=== PATIENT | female | born 1965 | race Caucasian/White ===

== ENCOUNTER 2025-05-03 15:31 | Inpatient (IN) | payer BC, SELFPAY ==
[2025-05-03 10:22] VITALS: BP 132/80
--- NOTE | 2025-05-03 11:37 | ED.GENMED ---
History of Present Illness
<Deepak Pineda DO - Last Filed: 05/03/25 11:40>
General
Chief Complaint: Abdominal Symptoms
Time Seen by Provider: 05/03/25 11:02
<Kathy Crawford DO, Resident - Last Filed: 05/03/25 15:28>
General
Source: patient
Exam Limitations: none
Nursing documentation reviewed up to this point in time: agreed with
History of Present Illness
History of Present Illness:
Patient is a 59-year-old female past medical history of obesity on GLP-1 agonist, presenting with new epigastric pain radiating to her right shoulder and back. Patient has been on 7 pound recently switched 2 months ago to Ozempic, and had a recent
dose increase on Tuesday. Patient woke up this morning had epigastric pain more on the right side that radiated to her right shoulder. Patient ate oatmeal this morning and still had pain and nausea. Patient had 1 episode of vomiting. Patient
also notes new heartburn. Patient endorses having a headache, although she normally has a headache after her Ozempic injections. Patient states that at her worst the pain was a 9, but now it is a 5. Patient is complaining of worsening chest
shoulder discomfort pain. Patient also notes increase in urination that is new over the last year. Patient recently traveled to [place] to visit her daughter and returned on Tuesday.
Review of Systems
<Kathy Crawford DO, Resident - Last Filed: 05/03/25 15:28>
Review of Systems
Allergies reviewed?: Yes
All Other Systems: ROS reviewed and negative except as documented in HPI and ROS
Constitutional: Reports no symptoms
EENT: Reports no symptoms
Respiratory: Reports no symptoms
Cardiac: Reports no symptoms
ABD/GI: Reports abdominal pain, nausea and constipated
: Reports frequency (Increased frequency over the last 6 months)
Musculoskeletal: Reports no symptoms
Skin: Reports no symptoms
Neurological: Reports headache (Notes headache after LP 1 agonist injections)
Endocrine: Reports no symptoms
Hematologic/Lymphatic: Reports no symptoms
Psychiatric: Reports no symptoms
Phy Exam
<Kathy Crawford DO, Resident - Last Filed: 05/03/25 15:28>
General Physical Exam
General Presentation: well appearing and mild distress
General age: appears stated age
General Skin: warm and dry
General Habitus: normal
General Mental: alert
Cardiovascular Exam
Cardiovascular Exam: regular rate/rhythm
Heart Sounds: normal
Pulmonary Exam
Pulmonary Exam: lungs clear and no respiratory distress
Gastrointestinal Exam
Gastrointestinal Exam: normal bowel sounds and tender (Mildly tender in upper right quadrant)
Neurological Exam
Neurological Exam: alert and oriented x3
Skin Exam
Skin Exam: normal color and warm/dry
Psychiatric Exam
Psychiatric Exam: normal mood/affect
Course
<Deepak Pineda DO - Last Filed: 05/03/25 11:40>
Orders/Labs/Results
Orders:
Orders
05/03/25 11:33
Mag Hydrox/Al Hydrox/Simeth [Maalox] 30 ml Phenobarb/Hyoscy/Atropine/Scop [] 10 ml Viscous Lidocaine 2% [Xylocaine Viscous Cup] 10 ml PO NOW
05/03/25 11:34
Electrocardiogram (*1) Stat
Reason for Study: Chest Pain
EKG- Treatment ONCE
05/03/25 11:35
Electrocardiogram (*1) Urgent
Reason for Study: Chest Pain
05/03/25 11:46
Complete Blood Count/With Diff Urgent
Comprehensive Metabolic Panel Stat
Comment: ADD ON
Direct Bilirubin Stat
Comment: ADD ON
Lipase Stat
Troponin I Urgent
05/03/25 11:52
Mag Hydrox/Al Hydrox/Simeth [Maalox] 30 ml .ROUTE .STK-MED ONE
Phenobarb/Hyoscy/Atropine/Scop [] 10 ml .ROUTE .STK-MED ONE
Viscous Lidocaine 2% [Xylocaine Viscous Cup] 15 ml .ROUTE .STK-MED ONE
05/03/25 12:29
Urinalysis Reflex To Culture Urgent
Date Specimen was Collected: 05/03/25
Time Specimen was Collected: 12:28
05/03/25 13:37
Add On- LAB Urgent
Tests Added?: LFTs
05/03/25 14:21
CT Abd/pel W Iv And Oral Contr Urgent
Comment:
Reason For Exam: Abdominal Pain, Elevated Lipase
Iohexol [Omnipaque] See Protocol PO NOW STA
05/03/25 14:22
Admit/Transfer Patient As Directed
Co-Sign Provider:
Level of Care: Inpatient admission
Assign to:: Medical/Surgical
Physician / Group: [facility]
Diagnosis: Pancreatitis
Reason for Hospitalization: CT scan, IVFs, Pancreatitis Management
Expected length of stay greater than two midnights?: Yes
ELOS- Estimated Length of Stay in days: 3
I certify the patient meets the requirements for IP care: Yes
PRN Pain Medication Management As Directed
May give lesser potent ordered pain med per pt: Yes
preference::
Protocol:: Medication orders for pain may be administered in a
manner that supports deferring to patient preference
when the pt is:
- Requesting an ordered lesser potent pain medication.
Least to most potent pain medications are defined
as: acetaminophen < NSAID < tramadol < opioids
(morphine, oxycodone, hydromorphone).
- Requesting a lesser dose of the same medication IF
ORDERED.
- Requesting a less intrusive route of administration
if both routes are prescribed by the provider (PO <
IV).
05/03/25 14:23
Code Status As Directed
Resuscitation Status: Full Code
05/03/25 15:00
Lactated Ringers [Lr] 1,000 ml IV 150 mls/hr
Abnormal Lab Results
05/03/25
11:46
MCH 26.9 L pg
(27.0-31.0)
MCHC 32.1 L g/dL
(33.0-37.0)
Lipase 3660 H* U/L
(23-300)
05/03/25 11:46
05/03/25 12:29
Vital Signs
Initial and Last Documented VS:
Initial Vital Signs
Temp Pulse Resp BP Pulse Ox
98.2 F 88 16 132/80 98
05/03/25 10:22 05/03/25 10:22 05/03/25 10:22 05/03/25 10:22 05/03/25 10:22
Last Documented Vital Signs
Temp Pulse Resp BP Pulse Ox
98.2 F 84 18 138/73 100
05/03/25 10:22 05/03/25 14:30 05/03/25 14:30 05/03/25 14:30 05/03/25 14:30
<Kathy Crawford DO, Resident - Last Filed: 05/03/25 15:28>
Orders/Labs/Results
Orders:
Orders
05/03/25 11:33
Mag Hydrox/Al Hydrox/Simeth [Maalox] 30 ml Phenobarb/Hyoscy/Atropine/Scop [] 10 ml Viscous Lidocaine 2% [Xylocaine Viscous Cup] 10 ml PO NOW
05/03/25 11:34
Electrocardiogram (*1) Stat
Reason for Study: Chest Pain
EKG- Treatment ONCE
05/03/25 11:35
Electrocardiogram (*1) Urgent
Reason for Study: Chest Pain
05/03/25 11:46
Complete Blood Count/With Diff Urgent
Comprehensive Metabolic Panel Stat
Comment: ADD ON
Direct Bilirubin Stat
Comment: ADD ON
Lipase Stat
Troponin I Urgent
05/03/25 11:52
Mag Hydrox/Al Hydrox/Simeth [Maalox] 30 ml .ROUTE .STK-MED ONE
Phenobarb/Hyoscy/Atropine/Scop [] 10 ml .ROUTE .STK-MED ONE
Viscous Lidocaine 2% [Xylocaine Viscous Cup] 15 ml .ROUTE .STK-MED ONE
05/03/25 12:29
Urinalysis Reflex To Culture Urgent
Date Specimen was Collected: 05/03/25
Time Specimen was Collected: 12:28
05/03/25 13:37
Add On- LAB Urgent
Tests Added?: LFTs
05/03/25 14:21
CT Abd/pel W Iv And Oral Contr Urgent
Comment:
Reason For Exam: Abdominal Pain, Elevated Lipase
Iohexol [Omnipaque] See Protocol PO NOW STA
05/03/25 14:22
Admit/Transfer Patient As Directed
Co-Sign Provider:
Level of Care: Inpatient admission
Assign to:: Medical/Surgical
Physician / Group: [facility]
Diagnosis: Pancreatitis
Reason for Hospitalization: CT scan, IVFs, Pancreatitis Management
Expected length of stay greater than two midnights?: Yes
ELOS- Estimated Length of Stay in days: 3
I certify the patient meets the requirements for IP care: Yes
PRN Pain Medication Management As Directed
May give lesser potent ordered pain med per pt: Yes
preference::
Protocol:: Medication orders for pain may be administered in a
manner that supports deferring to patient preference
when the pt is:
- Requesting an ordered lesser potent pain medication.
Least to most potent pain medications are defined
as: acetaminophen < NSAID < tramadol < opioids
(morphine, oxycodone, hydromorphone).
- Requesting a lesser dose of the same medication IF
ORDERED.
- Requesting a less intrusive route of administration
if both routes are prescribed by the provider (PO <
IV).
05/03/25 14:23
Code Status As Directed
Resuscitation Status: Full Code
05/03/25 15:00
Lactated Ringers [Lr] 1,000 ml IV 150 mls/hr
Abnormal Lab Results
05/03/25
11:46
MCH 26.9 L pg
(27.0-31.0)
MCHC 32.1 L g/dL
(33.0-37.0)
Lipase 3660 H* U/L
(23-300)
05/03/25 11:46
05/03/25 12:29
Vital Signs
Initial and Last Documented VS:
Initial Vital Signs
Temp Pulse Resp BP Pulse Ox
98.2 F 88 16 132/80 98
05/03/25 10:22 05/03/25 10:22 05/03/25 10:22 05/03/25 10:22 05/03/25 10:22
Last Documented Vital Signs
Temp Pulse Resp BP Pulse Ox
98.2 F 84 18 138/73 100
05/03/25 10:22 05/03/25 14:30 05/03/25 14:30 05/03/25 14:30 05/03/25 14:30
<Kathy Crawford DO, Resident - Last Filed: 05/03/25 15:28>
MDM/Problems Addressed
Differential Diagnosis Includes:
Acute pancreatitis
MDM/Problems Addressed:
CBC BMP and lipase to assess for pancreatitis. Patient complaining of worsening chest back pain, ordered EKG to assess cardiac causes. EKG showed normal sinus rhythm. Troponin negative. Lipase resulted 3660. Patient amenable to to hospital
admission for pain management, hydration and eventual advancing of diet.
<Deepak Pineda, - Last Filed: 05/03/25 11:40>
*Pulse Oximetry
SaO2: 98
Oxygen Mode of Delivery: Room air
<Kathy Crawford DO, Resident - Last Filed: 05/03/25 15:28>
*Pulse Oximetry
Patient hypoxic: no
*EKG
Interpreted by ED Provider?: Yes
Interpretation: normal
*Critical Care Note
Total Time (30-74mins, 75-104mins- exclusive of procedures): Not Applicable
ED Attending Note
<Deepak Pineda, DO - Last Filed: 05/03/25 11:40>
ED Attending Note
Patient seen and examined by attending physician: Yes
I performed a history and physical exam of patient and discussed management with resident, I reviewed resident's note and agree with documented findings and plan of care.: Yes
ED Attending Note:
I have seen and evaluated the patient with a [id number] encounter. I have spoken to the resident and involved in the medical history, the physical exam, medical decision making.
Evaluation and management service: agree unless noted differently below.
Results interpretation: agree unless noted differently below.
Focused HPI: 59-year-old female presenting with resolving abdominal discomfort. This started after her morning coffee. She states the discomfort was radiating to her right shoulder of note, she was recently switched from Zepbound to Ozempic few
months ago. On my assessment, all symptoms appear to be resolving. Symptom are not exertional
Physical exam: Sitting in bed comfortably. Abdomen soft nontender
Medical Decision Making: Given age and complaint, will obtain screening EKG. We discussed the more likely diagnosis of gastritis versus pancreatitis secondary to medication side effect. Patient has had a prior cholecystectomy. Will give GI
cocktail. If workup negative, will refer to GI
-
Portions of this chart may have been created with voice recognition software.� Occasional wrong word or��sound alike� substitutions may have occurred due to the inherent limitations of voice recognition software.
Discharge Plan
Departure
Patient Disposition: Admit
Date of Disposition: 05/03/25
Time of Disposition: 13:32
Presentation/result/management discussed w/ accepting MD/DO: Hospitalist
Discharge Problem:
Pancreatitis, acute
Instructions: Abdominal Pain
Prescriptions:
No Action
escitalopram oxalate [Lexapro] 10 mg Tablet
20 mg PO DAILY
doxepin 75 mg Capsule
75 mg PO HS
diphenhydramine HCl [Benadryl] 25 mg Capsule
25 mg PO HSPRN PRN (Reason: sleep)
ibuprofen [Advil] 200 mg Tablet
400 mg PO Q8HPRN PRN (Reason: mild pain)
Zepbound 15 mg/0.5 mL Pen Injector
15 mg SC WE
Referrals:
Dank Marie MD [Family Provider, Family Practice]
Interventions
Interventions:
*Risk Screen - Suicide Last Done: 05/03/25 10:22
*Neglect/Abuse Screening Last Done: 05/03/25 10:22
EI-Yveaqa-Vjpzmkjoak Assessment Last Done: 05/03/25 12:35
Discharge Date and Time
Print Language: SINHALA
[2025-05-03 11:48] VITALS: BP 93/66
[2025-05-03] MEDS: MAALOX 50 PO (11:54)
[2025-05-03 11:57] LABS: Hematocrit 38.3 % (37.0-47.0); Hemoglobin 12.3 g/dL (12.0-16.0); Mean Corp Hgb Conc. 32.1 g/dL (33.0-37.0); Mean Corpuscular Volume 83.6 fL (81.0-99.0); Nucleated Red Blood Cells % 0 %; Platelet Count 300 10^3/uL (130-400); Red Cell Dist. Width 13.3 % (11.5-14.5)
[2025-05-03 12:30] LABS: Troponin I < 0.012 ng/ml
[2025-05-03 12:39] LABS: Urine Character Clear (Clear)
[2025-05-03 12:50] LABS: Blood Urea Nitrogen 13 mg/dl (7-17); Calcium 8.8 mg/dl (8.4-10.2); Carbon Dioxide 29 mmol/L (22-30); Chloride 105 mmol/L (98-107); Glucose 79 mg/dl (70-99); Lipase 3660 U/L (23-300); Potassium 4.3 mmol/L (3.5-5.1); Sodium 139 mmol/L (135-145); eGFR > 60.00
--- NOTE | 2025-05-03 13:39 | HPS.HSE ---
Family Physician
-
Family Physician: Dank Marie
Chief Complaint
-
Abdominal Pain
History of Present Illness
Patient is a 59 y/o female past medical history of anxiety, and treated hepatitis C who presents with abdominal pain. Patient awoke this morning with right upper quadrant and epigastric abdominal pain. She reports pain radiated around to the back
and then up to her right shoulder. She took some Motrin with some improvement in the pain. She then ate some oatmeal for breakfast which cause the pain get significant worse prompting her to come to the emergency department for evaluation. She
reports some associated nausea and two episodes of vomiting after eating oatmeal. She notes her gallbladder was removed over 10 years ago.
Patient reports she has been taking Zepbound for past several months, and changed to Ozempic one month ago.
Medical History
Past Medical History
Past Medical History: Reports Other
Additional Past Medical History:
Generalized Anxiety Disorder / Insomnia
Treated Hepatitis C
Past Surgical History: Reports Other
Additional Past Surgical History:
Partial Hysterectomy
Cholecystectomy
Section
Social History
Tobacco: Non-smoker
Alcohol: None
Drug: Former User (Patient reports has been sober since the fall )
Family History
Family History: Not pertinent
Allergies / Home Medications
Allergies reflects when Allergies were last updated in [facility].
Home Medications with original date entered in [facility]
Allergy/Medication List:
Allergies
Allergy/AdvReac Type Severity Reaction Status Date / Time
codeine Allergy NAUSEA AND Verified 05/03/25 10:27
ITCHING
Home Medications
diphenhydramine HCl 25 mg capsule (Benadryl) 25 mg PO HSPRN PRN sleep 05/03/25
doxepin 75 mg capsule 75 mg PO HS 05/03/25
escitalopram oxalate 10 mg tablet (Lexapro) 20 mg PO DAILY 05/03/25
ibuprofen 200 mg tablet (Advil) 400 mg PO Q8HPRN PRN mild pain 05/03/25
tirzepatide (weight loss) 15 mg/0.5 mL subcutaneous pen injector (Zepbound) 15 mg SC WE 05/03/25
Review of Systems
-
A 12 point ROS was completed and negative except as noted: Yes
Constitutional: Denies Fever
Respiratory: Denies Cough or Trouble Breathing
Cardiac: Denies Chest Pain or Palpitations
Abdomen/GI: Reports See HPI
Physical Exam
Vital Signs
Vital Signs
Temp Pulse Resp BP Pulse Ox
98.2 F 71 30 93/66 98
05/03/25 10:22 05/03/25 12:00 05/03/25 11:48 05/03/25 11:48 05/03/25 11:37
Physical Exam
General: Comfortable and Conversant
HEENT: Anicteric and Moist mucous membranes
Respiratory: Clear and Non Labored Respirations
Cardiac: S1/S2 and Regular Rhythm
GI: Soft and Tender (Mild tenderness to palpation in epigastric and right upper quadrant, slightly more tender in right upper quadrant)
Rectal: Deferred by Provider
Musculoskeletal: No Clubbing, No Cyanosis and No Edema
Skin: Warm and Dry
Neuro: Awake, Alert, Oriented and Nonfocal/grossly intact
Psych: Calm
Laboratory Results
-
05/03/25 11:46
Laboratory Tests
05/03/25
11:46
Sodium 139
Potassium 4.3
Chloride 105
Carbon Dioxide 29
BUN 13
Creatinine 0.7
Glucose 79
Total Bilirubin Pending
Direct Bilirubin Pending
AST Pending
ALT Pending
Alkaline Phosphatase Pending
Total Protein Pending
Albumin Pending
Lipase 3660 H*
Data Reviewed
-
Lab Data: Labs Reviewed by me
Impression/Plan
-
Acute Pancreatitis, unclear cause possibly related to Ozempic vs Choledocholithiasis
-LFTs are pending
-Check Abd/Pelvis CT scan
-Continue NPO/IVFs
-Continue Tylenol for mild pain, Toradol for moderate pain and Dilaudid for severe pain
Anxiety / Insomnia
-Continue doxepin and escitalopram
DVT proph: Lovenox
Code Status: Full Code
[2025-05-03 14:30] VITALS: BP 138/73
[2025-05-03] MEDS: OMNIPAQUE 50 ML PO (14:38)
--- NOTE | 2025-05-03 14:40 | W.PN.UPDATE ---
Update Note
Progress Note Update
This is an addendum to H&P written by Brittany Laughlin on 05/03/2025. �Patient seen and examined independently with PA.
59-year-old female past medical history of obesity on Ozempic, anxiety, treated hepatitis C, IV drug use , cholecystectomy 10 years ago presenting with epigastric pain rating to right shoulder and back associate with vomiting, heartburn, increase in
urination. �Recently switched from Zepbound to Ozempic 2 months ago and had dose increased.
Vital signs show initial blood pressure normal however second blood pressure 93/66. �Labs unremarkable apart from lipase of 3600.
Patient with acute pancreatitis secondary to Ozempic vs choledocholithiasis. �Check LFTs. �N.p.o., IV fluids. �Dilaudid, Zofran, Dilaudid. Check CT abdomen pelvis with IV contrast.
[2025-05-03 14:53] LABS: ALT (SGPT) 13 U/L (0-35); AST (SGOT) 17 U/L (14-36); Albumin 4.2 g/dl (3.5-5.0); Alkaline Phosphatase 63 U/L (38-126); Total Protein 6.9 g/dl (6.3-8.2)
--- NOTE | 2025-05-03 14:53 | CM ---
CM reviewed chart and met with pt bedside in ED. Lives with her mother, 1 story home, no KADEEM.
Pt is but has been for 10 years.
Independent in ADLs, personal care and ambulation at baseline. No DME.
No hx VN/SNF.
Does not have prescription coverage, states insurance has high deductibles.
PCP: Dank Marie
Pharmacy: [facility]
Anticipate discharge home, watch for needs.
[2025-05-03] MEDS: LR 1000 IV ×2 (15:26→20:09)
[2025-05-03 15:28] VITALS: BP 110/65
[2025-05-03 17:41] VITALS: BP 135/74
[2025-05-03 19:45] VITALS: BMI 38.3
[2025-05-03] MEDS: LOVENOX 40 MG SC (20:08)
--- NOTE | 2025-05-03 20:18 | W.PN.UPDATE ---
Update Note
Progress Note Update
Abd / Pelvis CT scan:
Elongated jejuno-jejunal intussusception extending for a length of at least 12 cm. In an adult, intussusception is usually accompanied by a mass and/for lead point.
Reviewed with patient CT scan results.
Consulted General Surgery who recommends repeat CT tomorrow morning
Continue NPOfor possible OR following CT scan based on results
Place NG Tube if patient develops vomiting
[2025-05-03] MEDS: MELATONIN PO (21:02)
[2025-05-03] MEDS: BENADRYL 25 MG PO (21:02)
[2025-05-03] MEDS: SINEQUAN 75 MG PO (21:02)
[2025-05-03] MEDS: MELATONIN 5 MG PO (21:05)
[2025-05-03 23:06] VITALS: BP 130/68
[2025-05-03] MEDS: DILAUDID 0.25 MG IV (23:08)
[2025-05-03] MEDS: TYLENOL 650 MG PO (23:43)
--- NOTE | 2025-05-04 00:23 | PTCARENOTE ---
Patient in bed on unit at change of shift. No c/o pain or discomfort on assessment. Oriented to unit. Call cabrera within reach.
[2025-05-04] MEDS: DILAUDID 0.25 MG IV ×2 (02:24→20:37)
[2025-05-04] MEDS: LR 1000 IV ×3 (02:26→16:40)
[2025-05-04] MEDS: TYLENOL 650 MG PO ×2 (05:02→22:29)
[2025-05-04 07:00] VITALS: BP 115/62
--- NOTE | 2025-05-04 07:30 | W.PN.HOSP.TC ---
Today's Communication/Plan
-
See A/P
Assessment / Plan
Assessment / Plan
Assessment/plan
#Abdominal pain secondary to jejunal intussusception
-Presented with epigastric pain radiating to back
-Lipase level on presentation 3660
-Abdominal CT- Elongated jejuno-jejunal intussusception extending for a length of at least 12 cm. In an adult, intussusception is usually accompanied by a mass and/for lead point. No definitive pancreatic/peripancreatic -inflammatory changes.
-General surgery consulted given imaging findings
-Input appreciated, recommended CT repeat today
-N.p.o. for possible OR today
-Pain control with Tylenol, ketorolac. Avoid hydromorphone
-Continue IV fluids
#Anxiety
-Continue Lexapro
#Insomnia
-Continue doxepin
#Obesity secondary to excess calories
-Affects all aspects of care, counseled on weight loss
CODE STATUS full code
DVT prophylaxis Lovenox
Anticipated Discharge: > 48 hours
Subjective/Interval History
-
Patient seen and examined at bedside. Reports significant improvement in pain compared to yesterday.
Objective Data
-
Labs:
Laboratory Results
05/04/25
06:00
WBC Pending
Hgb Pending
Hct Pending
Plt Count Pending
Sodium Pending
Potassium Pending
Chloride Pending
Carbon Dioxide Pending
BUN Pending
Creatinine Pending
Glucose Pending
Calcium Pending
Total Bilirubin Pending
AST Pending
ALT Pending
Alkaline Phosphatase Pending
Vital Signs:
Vital Signs
Temp Pulse Resp BP Pulse Ox
98.0 F 81 18 130/68 96
05/03/25 23:06 05/03/25 23:06 05/03/25 23:06 05/03/25 23:06 05/03/25 23:06
I&O
05/03/25 05/04/25 05/05/25
06:59 06:59 06:59
Intake Total 2079
Balance 2079
Review of Systems
-
All other systems: Reviewed and negative (Except as documented)
Physical Exam
-
General: Well Developed and No Apparent Distress
Respiratory: Clear to Auscultation
Cardiac: Regular Rhythm and S1/S2
GI: Soft, Nondistended, Normal Bowel Sounds and Tender (Tenderness to palpation in the left quadrant)
Musculoskeletal: No Edema
Neuro: Awake, Alert, Oriented and AO x 3
--- NOTE | 2025-05-04 08:08 | W.PN.UPDATE ---
Update Note
Progress Note Update
I saw and evaluated the patient. I reviewed the resident�s note and agree with findings and plan as documented in the resident�s note.
Abdominal pain O/N, none now, no vomiting.
Gen: NAD, AAOx3.
Eyes: EOMI, PERRLA, no scleral icterus.
Neck: supple.
CV: RRR, +S1/S2, no m/r/g.
Resp: CTAB, no rales, wheezes, or rhonchi.
Abd: +BS, soft, NT, ND
Skin: No rashes.
Neuro: CN 2-12 intact, non-focal.
Psych: Normal mood and affect.
CT A/P: Elongated jejuno-jejunal intussusception extending for a length of at least 12 cm. In an adult, intussusception is usually accompanied by a mass and/for lead point. Suggest surgical consultation. Prior cholecystectomy. Slight prominence of
the extrahepatic biliary tract which may be the sequela of prior cholecystectomy. Suggest correlation with LFTs. No definitive pancreatic/peripancreatic inflammatory changes.
Acute jejunal jejunal intussusception:
-NPO/IVFs
-repeat CT A/P today
-surgery following
Anxiety/Insomnia:
-Continue doxepin and escitalopram
FULL/Lovenox
Request transfer to surgical service, Dr. Ta aware.
[2025-05-04] MEDS: OMNIPAQUE 50 ML PO (08:24)
[2025-05-04] MEDS: LEXAPRO 20 MG PO (08:24)
[2025-05-04 08:59] LABS: Hematocrit 35.3 % (37.0-47.0); Hemoglobin 11.2 g/dL (12.0-16.0); Mean Corp Hgb Conc. 31.7 g/dL (33.0-37.0); Mean Corpuscular Volume 83.1 fL (81.0-99.0); Platelet Count 257 10^3/uL (130-400); Red Cell Dist. Width 13.3 % (11.5-14.5)
[2025-05-04 09:24] LABS: ALT (SGPT) 12 U/L (0-35); AST (SGOT) 16 U/L (14-36); Albumin 3.7 g/dl (3.5-5.0); Alkaline Phosphatase 58 U/L (38-126); Blood Urea Nitrogen 11 mg/dl (7-17); Calcium 8.8 mg/dl (8.4-10.2); Carbon Dioxide 29 mmol/L (22-30); Chloride 107 mmol/L (98-107); Glucose 86 mg/dl (70-99); Lipase 104 U/L (23-300); Magnesium 2.1 mg/dl (1.6-2.3); Potassium 4.7 mmol/L (3.5-5.1); Sodium 139 mmol/L (135-145); Total Protein 6.1 g/dl (6.3-8.2); eGFR > 60.00
[2025-05-04] MEDS: TORADOL 10 MG IV ×2 (10:39→16:41)
--- NOTE | 2025-05-04 12:34 | CON.GS ---
Consultation
-
Date/Time Consultation Performed: 05/04/25 0945
Medical History
-
Chief Complaint: abdominal pain
History of Present Illness:
Ms Block is a 59 yo female with a h/o
Past Medical History
Past Medical History: Psychiatric (HONORIO) and Other (Hepatitis C (treated))
Past Surgical History: Cholecystectomy, (x2), Gynecological (partial hysterectomy) and Other (colonoscopy 2015)
Social History
Tobacco: Non-Smoker
Alcohol: None
Drug: Other (former sober since 2023)
Family History
Family History: Cancer (colon cancer)
Allergies / Home Medications
Allergy/AdvReac Type Severity Reaction Status Date / Time
codeine Allergy NAUSEA AND Verified 05/03/25 10:27
ITCHING
�Medication �Instructions �Recorded �Confirmed �Type
diphenhydramine HCl 25 mg capsule 25 mg PO HSPRN PRN sleep 05/03/25 05/03/25 History
(Benadryl)
doxepin 75 mg capsule 75 mg PO HS sleep/depression 05/03/25 05/03/25 History
escitalopram oxalate 10 mg tablet 20 mg PO DAILY Mental Health 05/03/25 05/03/25 History
(Lexapro)
ibuprofen 200 mg tablet (Advil) 400 mg PO Q8HPRN PRN mild pain 05/03/25 05/03/25 History
tirzepatide (weight loss) 15 15 mg SC WE Endocrine 05/03/25 05/03/25 History
mg/0.5 mL subcutaneous pen
injector (Zepbound)
Review of Systems
-
History Source: Patient
All other systems: Negative unless noted
A 10 point review of systems was completed, and was negative except as per HPI.
Physical Exam
Vital Signs
Temp Pulse Resp BP Pulse Ox
97.8 F 83 16 115/62 97
05/04/25 07:00 05/04/25 07:00 05/04/25 07:00 05/04/25 07:00 05/04/25 07:00
05/03/25 05/04/25 05/05/25
06:59 06:59 06:59
Actual Weight 88.961 kg
Lab Results
05/04/25 08:24
05/04/25 08:24
WBC 4.7 10^3/uL (4.8-10.8) L 05/04/25 08:24
Hgb 11.2 g/dL (12.0-16.0) L 05/04/25 08:24
Hct 35.3 % (37.0-47.0) L 05/04/25 08:24
Plt Count 257 10^3/uL (130-400) 05/04/25 08:24
Abs Immat Gran (auto) 0.0 10^3/uL (0-0.05) 05/03/25 11:46
Neutrophils % 51.7 % (42.2-75.2) 05/03/25 11:46
Physical Exam
General: Well Developed and Well Nourished
HEENT: Moist Mucous Membranes
Respiratory: Non Labored Respirations
GI: Soft, Non Distended and Tender (upper abdomen)
Skin: Warm and Dry
Neuro: Awake, Alert and AO x 3
Psych: Calm
Data Reviewed
-
CT Scan: Image Personally Visualized and interpreted, Report Reviewed by me, Discussed with Physician and Discussed with Patient
Labs: Labs Reviewed by me, Discussed with Physician and Discussed with Patient
Old Records: Reviewed
Assessment / Plan
-
59 yo female with h/o sharon, x2 and partial hysterectomy on Ozempic for weight loss who presented with upper abdominal pain which began yesterday morning associated with nausea and vomiting. She denies active nausea but does note that the
pain is still present with some tenderness noted on exam although no distention. Her initial CT was notable for a 12cm jejuno-jejunal intussusception. Lab work on presentation remarkable for abnormal lipase of 3660 which has normalized today. No
leukocytosis. No fevers.
Plan:
Repeat CT ordered this morning with PO contrast to further evaluate
NPO pending CT results
Analgesics as needed
IVF
Medical management as per primary team
[2025-05-04 15:00] VITALS: BP 119/66
[2025-05-04] MEDS: LOVENOX 40 MG SC (18:08)
[2025-05-04] MEDS: ZOFRAN 4 MG IV (20:38)
[2025-05-04] MEDS: BENADRYL 25 MG PO (21:04)
[2025-05-04] MEDS: SINEQUAN 75 MG PO (21:04)
[2025-05-04] MEDS: MELATONIN PO (22:00)
[2025-05-04 23:20] VITALS: BP 105/48
[2025-05-05] VITALS (12 sets, daily range): BP systolic 103–128; BP diastolic 60–85
[2025-05-05] MEDS: LR 1000 IV ×3 (00:40→15:04)
[2025-05-05] MEDS: DILAUDID 0.25 MG IV ×5 (02:07→14:28)
[2025-05-05] MEDS: TORADOL 10 MG IV ×3 (03:51→23:48)
[2025-05-05 06:34] LABS: Blood Urea Nitrogen 8 mg/dl (7-17); Calcium 8.7 mg/dl (8.4-10.2); Carbon Dioxide 30 mmol/L (22-30); Chloride 108 mmol/L (98-107); Estimated Creatinine Clearance 76 ml/min; Glucose 79 mg/dl (70-99); Potassium 4.4 mmol/L (3.5-5.1); Sodium 141 mmol/L (135-145); eGFR > 60.00
[2025-05-05 06:35] LABS: Hematocrit 34.2 % (37.0-47.0); Hemoglobin 10.8 g/dL (12.0-16.0); Mean Corp Hgb Conc. 31.6 g/dL (33.0-37.0); Mean Corpuscular Volume 83.2 fL (81.0-99.0); Nucleated Red Blood Cells % 0 %; Platelet Count 242 10^3/uL (130-400); Red Cell Dist. Width 13.4 % (11.5-14.5)
--- NOTE | 2025-05-05 09:42 | W.PN.GS2 ---
Addendum entered and electronically signed by Delgado Ta MD 05/05/25 11:07:
Patient seen this a.m. with [facility]. Unfortunately she is continuing to require Dilaudid and complains of abdominal pain. Given the circumstance I recommended a trip to the OR. My plan is a exploratory laparoscopy with possible conversion to open and
possible partial bowel resection. Operation discussed in detail with the patient. Risk and benefits were described. Risks touched on included but are not limited to bleeding, infection, bowel injury, anastomotic leak, anastomotic issue, organ
injury, possible stoma, and anesthetic risk. The patient understood and agreed to proceed.
Original Note:
Today's Communication / Plan
-
OR today
Assessment / Plan
-
59 yo female presenting with jejuno-jejunal intussusception and ileitis of unclear etiology who had initially some improvement although no resolution on repeat imaging. Now with worsening pain and new n/v.
AFVSS
Mild acute anemia likely secondary to hemodilution
Cr WNL
Plan:
Continue LR, will decrease rate
Continue analgesics/antiemetics
Continue NPO
Will plan OR today for dx lap possible SBR
Subjective Data
-
Date of Service: May 05, 2025
Pt seen and examined at bedside with Dr. Ta. C/O worsening pain and now with n/v.
Objective Data
-
Intake and Output
05/04/25 05/05/25 05/06/25
06:59 06:59 06:59
Intake Total 2079 3440 / 3440
Balance 2079 3440 / 3440
Intake:
Oral fluids 480 / 480 1740 / 1740
IV fluids (Total) 1600 / 1600 1700 / 1700
Other:
Number of approximated MODERATE 3 5
amounts of urine
Number of approximated LARGE 4
amounts of urine
Vital Signs
Temp Pulse Resp BP Pulse Ox
97.6 F 89 16 120/78 97
05/05/25 07:35 05/05/25 07:35 05/05/25 07:35 05/05/25 07:35 05/05/25 07:35
Lab Results
05/05/25 05:18
05/05/25 05:18
Calcium 8.7 mg/dl (8.4-10.2) 05/05/25 05:18
Magnesium 2.1 mg/dl (1.6-2.3) 05/04/25 08:24
Total Bilirubin 0.6 mg/dl (0.2-1.3) 05/04/25 08:24
Direct Bilirubin 0.2 mg/dl (0.0-0.4) 05/03/25 11:46
AST 16 U/L (14-36) 05/04/25 08:24
ALT 12 U/L (0-35) 05/04/25 08:24
Alkaline Phosphatase 58 U/L (38-126) 05/04/25 08:24
Total Protein 6.1 g/dl (6.3-8.2) L 05/04/25 08:24
Albumin 3.7 g/dl (3.5-5.0) 05/04/25 08:24
Physical Exam
-
NAD
ABD soft, mild distention tender to mid abd up to epigastrium, [facility] INSPECTOR
[2025-05-05] MEDS: LEXAPRO 20 MG PO (10:00)
[2025-05-05 11:11] LABS: Glucose - Point of Care 82 mg/dl (70-99)
--- NOTE | 2025-05-05 13:55 | W.IMMPOSTOP ---
Surgical Immed Post Op Note
-
Primary Surgeon: Miladys Ta MD
Assisting Surgeon: Inna Aguilar NP
Pre-op Diagnosis: small bowel intussusception
Post-op Diagnosis: abdominal adhesions
Procedure Performed: 1) exploratory laparotomy (lap converted to open) 2) lysis of adhesions
Anesthesia Type: general plus local
Specimen / Cultures: none
Estimated Blood Loss: 50 cc
Complications: no immediate
Operative Findings: 1) no obvious small bowel intussusception 2) no small bowel mass or abnormality 3) omental and small bowel adhesions
Will send back to med surg.
--- NOTE | 2025-05-05 15:46 | PTCARENOTE ---
Received patient from pacu via bed around 1500. Patient extremely drowsy. Falling asleep while talking to RN, but still asking for pain medication. Resps 14 and O2 sat on 3l is 95%. Explained to patient that it was not safe to give her more pain
medication at this time due to her respiratory status. Patient stated she understood. Abdomen with 2 lap sites and one midline incision with dressing, cdi. Call cabrera in reach.
[2025-05-05] MEDS: LOVENOX 40 MG SC (17:13)
[2025-05-05] MEDS: ZOSYN 50 IV ×2 (17:15→23:50)
[2025-05-05] MEDS: DILAUDID 1 MG IV ×2 (18:00→21:03)
[2025-05-05] MEDS: TYLENOL 650 MG PO ×2 (19:36→23:51)
[2025-05-05] MEDS: MELATONIN PO ×2 (22:22→22:24)
[2025-05-05] MEDS: SINEQUAN 75 MG PO (22:22)
[2025-05-05] MEDS: ZOFRAN 4 MG IV (23:52)
[2025-05-05] MEDS: DILAUDID 0.5 MG IV (23:52)
[2025-05-06] MEDS: BENADRYL 25 MG PO
[2025-05-06] MEDS: LR 1000 IV ×2 (02:50→15:23)
[2025-05-06 03:18] VITALS: BP 113/60
[2025-05-06] MEDS: DILAUDID 1 MG IV ×6 (04:05→22:53)
[2025-05-06] MEDS: TYLENOL 650 MG PO ×5 (04:06→19:37)
[2025-05-06] MEDS: ZOSYN 50 IV ×3 (05:42→17:37)
[2025-05-06] MEDS: TORADOL 10 MG IV ×3 (05:43→17:36)
[2025-05-06 06:42] LABS: Hematocrit 32.9 % (37.0-47.0); Hemoglobin 10.5 g/dL (12.0-16.0); Mean Corp Hgb Conc. 31.9 g/dL (33.0-37.0); Mean Corpuscular Volume 83.7 fL (81.0-99.0); Platelet Count 218 10^3/uL (130-400); Red Cell Dist. Width 13.2 % (11.5-14.5)
[2025-05-06 07:11] LABS: Blood Urea Nitrogen 9 mg/dl (7-17); Calcium 8.2 mg/dl (8.4-10.2); Carbon Dioxide 27 mmol/L (22-30); Chloride 106 mmol/L (98-107); Estimated Creatinine Clearance 76 ml/min; Glucose 134 mg/dl (70-99); Potassium 4.7 mmol/L (3.5-5.1); Sodium 139 mmol/L (135-145); eGFR > 60.00
[2025-05-06 07:39] VITALS: BP 107/77
[2025-05-06] MEDS: LEXAPRO 20 MG PO (07:49)
--- NOTE | 2025-05-06 10:11 | W.PN.CRS1 ---
Today's Communication / Plan
-
fulls
Assessment/Plan
-
POD#1 1) exploratory laparotomy (lap converted to open) 2) lysis of adhesions
WBC: 11.7. Hgb 0.5.
- Advance to full liquid diet
- Out of bed as tolerated
- Trend labs
- Lovenox for DVT prophylaxis. Teds and SCDs in place.
- Eventual MRE as an outpatient
- DC IV fluids when tolerating p.o.
Subjective Data
Procedure
05/05/2025- 1) exploratory laparotomy (lap converted to open) 2) lysis of adhesions
Subjective Data
Date of Service: May 06, 2025
Patient states she feels much better than yesterday. She has not had a bowel movement yet. She is very hungry. Denies nausea or vomiting. She is tolerating clears.
Objective Data
-
Vital Signs
Temp Pulse Resp BP Pulse Ox
97.9 F 93 16 107/77 93
05/06/25 07:39 05/06/25 07:39 05/06/25 07:39 05/06/25 07:39 05/06/25 09:51
Intake & Output
05/05/25 05/06/25 05/07/25
06:59 06:59 06:59
Intake Total 3440 / 3440 1930 / 1930
Output Total 1875 / 1875
Balance 3440 / 3440 55 / 55
Intake:
Oral fluids 1740 / 1740 900 / 900
IV fluids (Total) 1700 / 1700 930 / 930
IV piggybacks 100 / 100
Output:
Urine, Muñiz 300 / 300
Urine, Voided 1575 / 1575
Other:
Number of approximated MODERATE 5
amounts of urine
Number of approximated LARGE 4
amounts of urine
Lab Results
05/06/25 05:34
05/06/25 05:34
Physical Exam
-
General: No Acute Distress and AOx3
Abdomen: Soft, Non Distended and Non Tender
Skin: Warm and Dry
Wound: Dressing in Place
Incision: Clear, Dry, Intact
--- NOTE | 2025-05-06 11:11 | CM ---
Chart reviewed. Post op day 1.
Patient had exploratory laparotomy (lap converted to open) and lysis of adhesions performed yesterday
No CM needs at this time
Plan: Home, no needs likely
[2025-05-06 15:16] VITALS: BP 135/73
[2025-05-06] MEDS: LOVENOX 40 MG SC (17:34)
[2025-05-06] MEDS: MELATONIN 5 MG PO (22:25)
[2025-05-06] MEDS: SINEQUAN 75 MG PO (22:25)
[2025-05-06 23:16] VITALS: BP 122/69
[2025-05-07] MEDS: TORADOL 10 MG IV ×3 (00:07→11:23)
[2025-05-07] MEDS: ZOSYN 50 IV ×3 (00:08→11:27)
[2025-05-07] MEDS: TYLENOL 650 MG PO ×3 (00:08→11:23)
[2025-05-07] MEDS: TYLENOL PO (03:55)
[2025-05-07 07:05] VITALS: BP 152/93
[2025-05-07 07:33] LABS: Hematocrit 32.7 % (37.0-47.0); Hemoglobin 10.2 g/dL (12.0-16.0); Mean Corp Hgb Conc. 31.2 g/dL (33.0-37.0); Mean Corpuscular Volume 84.7 fL (81.0-99.0); Nucleated Red Blood Cells % 0.2 %; Platelet Count 259 10^3/uL (130-400); Red Cell Dist. Width 13.7 % (11.5-14.5)
[2025-05-07 08:10] LABS: Blood Urea Nitrogen 11 mg/dl (7-17); Calcium 8.3 mg/dl (8.4-10.2); Carbon Dioxide 30 mmol/L (22-30); Chloride 104 mmol/L (98-107); Estimated Creatinine Clearance 68 ml/min; Glucose 84 mg/dl (70-99); Potassium 4.1 mmol/L (3.5-5.1); Sodium 142 mmol/L (135-145); eGFR > 60.00
[2025-05-07] MEDS: LEXAPRO 20 MG PO (08:38)
[2025-05-07] MEDS: ROXICODONE 5 MG PO (08:39)
[2025-05-07] MEDS: ZOFRAN 4 MG IV (08:39)
--- NOTE | 2025-05-07 08:49 | PN.CDI ---
CDI
- -
CDI:
Physician Documentation Request
Admit Date: 05/03/25 15:31
Dear Doctor Cely,
Patient admitted with abdominal pain.
H&P, 'Acute Pancreatitis, unclear cause possibly related to Ozempic vs Choledocholithiasis.'
8/ PN, 'Lipase level on presentation 3660.'
After careful study, please update the status of documented acute pancreatitis:
Acute pancreatitis is a valid diagnosis for this patient
Acute pancreatitis is not a valid diagnosis for this patient
Other
Use of terms such as suspected, likely, concern for, or probable (associated with a specific diagnosis that is being evaluated, monitored, or treated as if it exists) are acceptable and can be coded in the inpatient setting, when documented at the
time of discharge.
Thank you,
Ysabel GODOY,RN,CCDS
CDI Specialist
Available via [place] text
Please use your independent medical judgment in providing your response.
--- NOTE | 2025-05-07 10:10 | W.PN.CRS1 ---
Today's Communication / Plan
-
regular diet
d/c if tolerates a diet
Assessment/Plan
-
POD#2 1) exploratory laparotomy (lap converted to open) 2) lysis of adhesions
WBC: 10.2. Hgb 10.2 (10.5)
- Advance to regular diet
- Out of bed as tolerated
- Trend labs
- Lovenox for DVT prophylaxis. Teds and SCDs in place.
- Eventual MRE as an outpatient
- D/c Dilaudid IV. Change to po oxycodone.
- Okay for d/c later today if tolerates a regular diet. Discharge discussed with patient including activity levels, medications, and follow up. All questions addressed.
Subjective Data
Procedure
05/05/2025- 1) exploratory laparotomy (lap converted to open) 2) lysis of adhesions
Subjective Data
Date of Service: May 07, 2025
Patient states her pain is improving. Denies nausea or vomiting. Tolerating fulls. She wants to go home.
Objective Data
-
Vital Signs
Temp Pulse Resp BP Pulse Ox
98.7 F 97 16 152/93 98
05/07/25 07:05 05/07/25 07:05 05/07/25 07:05 05/07/25 07:05 05/07/25 07:05
Intake & Output
05/06/25 05/07/25 05/08/25
06:59 06:59 06:59
Intake Total 1929 / 0 1540 / 1540
Output Total 1874 187
Balance 55 / 55 1540 / 1540
Intake:
Oral fluids 900 / 900 1440 / 1440
IV fluids (Total) 930 / 930
IV piggybacks 100 / 100 100 / 100
Output:
Urine, Muñiz 300 / 300
Urine, Voided 1575 / 1575
Other:
Number of approximated MODERATE 2
amounts of urine
Lab Results
05/07/25 06:18
05/07/25 06:18
Physical Exam
-
General: No Acute Distress and AOx3
Abdomen: Soft, Non Distended and Non Tender
Wound: Dressing Changed
Incision: Clear, Dry, Intact (viky in place)
--- NOTE | 2025-05-07 10:46 | CM ---
Met w/ patient bedside, informed CM that the PA will sign her STD paperwork for her employment. She confirmed she sent it to the PA and anticipating getting it back signed as she is discharging home today. Asking for CM to reach out to the PA to
follow up on this before she discharges.
TT Jennifer/SYDNI regarding this. Jennifer confirmed she can fill it out this week but unable to complete it today before patient leaves. Confirmed that she provided the office number to patient.
Plan: Home, no needs
[2025-05-07 11:00] VITALS: BP 151/92
--- NOTE | 2025-05-07 12:28 | W.DCSUMMARY ---
Discharge Summary
Discharge Data
Date of Admission: 05/03/25
Date of Discharge: 05/07/25
-
Pending Results: No
Hospital Course
59-year-old female with a history of Ozempic for weight loss presented to [facility] on 05/03/2025 complaining of abdominal pain and vomiting. On CT, there were at least 2 intussusceptions of the small bowel. The more impressive 1 was a 12 cm
in length and is a jejunojejunal intussusception. Due to lack of obstruction she was monitored overnight but kept NPO. The following day she was still complaining of pain and so she went to the operating room and underwent an exploratory
laparotomy that was converted to open with lysis of adhesions. She tolerated the procedure well and was brought back to the medical surgical floor. The following day she was started on a full liquid diet. She was out of bed. Lovenox started for
DVT prophylaxis. On postop day 2 her pain was well-controlled. Her diet was advanced to a regular diet. It was determined the patient could be discharged home. All discharge instructions were discussed with patient include activity levels,
medications, and follow-up. All questions addressed.
Discharge Plan
-
Patient Disposition: Home (Routine Discharge)
Discharge Diagnosis/Procedures: 1) exploratory laparotomy (lap converted to open) 2) lysis of adhesions
Diet: Regular
Activity: No strenuous activity
Additional Activity: No lifting over 10lbs (gallon of milk)
Wound Care: Cover midline incision with gauze and paper tape daily and as needed. Okay to leave off to shower. [place] will be removed at your office appointment with Dr. Ta.
Referrals:
Delgado Ta MD [Active, [facility]] - in two weeks
Delgado Leyva DO [[facility]]
Dank Marie MD [Family Provider, [facility]]
Additional Discharge Medication Instructions: Tylenol or Ibuprofen as needed for pain. Maximum dose of Tylenol is 4,000mg in 24 hours. Maximum dose of Ibuprofen is 3,200mg in 24 hours.
Prescriptions:
New
ibuprofen 800 mg tablet
800 mg PO Q6H PRN (Reason: Pain) Qty: 20 0RF
oxycodone 5 mg tablet
5 mg PO Q6H PRN (Reason: Pain) Qty: 10 0RF
ondansetron 4 mg tablet,disintegrating
4 mg PO Q8H PRN (Reason: nausea and vomiting) Qty: 10 0RF
Continued
escitalopram oxalate [Lexapro] 10 mg Tablet
20 mg PO DAILY
doxepin 75 mg Capsule
75 mg PO HS
diphenhydramine HCl [Benadryl] 25 mg Capsule
25 mg PO HSPRN PRN (Reason: sleep)
ibuprofen [Advil] 200 mg Tablet
400 mg PO Q8HPRN PRN (Reason: mild pain)
Discontinued
Zepbound 15 mg/0.5 mL Pen Injector
15 mg SC WE
Discharge Orders:
Discharge Patient (As Directed); Ordered 05/07/25
Ordered By: Jennifer Menjivar
Discharge Date and Time
Print Language: KAZAKH
== END 2025-05-07 13:41 | disposition home or self-care (01) | DRG 336 ==
LOC: 2 SOUTH 15:31
PROVIDERS: Physician Assistant; Physician Assistant Medical; Registered Nurse; Student in an Organized Health Care Education/Training Program; ADMITTING PHYSICIAN Hospitalist; ATTENDING PHYSICIAN Surgery; EMERGENCY PHYSICIAN Student in an Organized Health Care Education/Training Program; FAMILY PHYSICIAN Family Medicine
PROC: 0DNU0ZZ Release Omentum, Open Approach (ICD-10-PCS; 2025-05-05)
PROC: 0DN80ZZ Release Small Intestine, Open Approach (ICD-10-PCS; 2025-05-05)
PROC: 3E0M05Z Introduction of Adhesion Barrier into Peritoneal Cavity, Open Approach (ICD-10-PCS; 2025-05-05)
DX: K66.0 Peritoneal adhesions (postprocedural) (postinfection) (principal); K56.1 Intussusception; E66.9 Obesity, unspecified; R51.9 Headache, unspecified; R12 Heartburn; F41.1 Generalized anxiety disorder; G47.00 Insomnia, unspecified; Z88.5 Allergy status to narcotic agent; Z90.49 Acquired absence of other specified parts of digestive tract; Z86.19 Personal history of other infectious and parasitic diseases; Z79.85 Long-term (current) use of injectable non-insulin antidiabetic drugs; Z90.711 Acquired absence of uterus with remaining cervical stump; Z80.0 Family history of malignant neoplasm of digestive organs; Z53.31 Laparoscopic surgical procedure converted to open procedure
CPT/HCPCS: 74177; 80048; 80053; 81003; 82248; 82962; 83690; 83735; 84484; 85025; 85027; 93005; 96360; 96361; 99285; Q9967

== ENCOUNTER → 2025-08-08 09:51 | Outpatient (REF) | payer BC, SELFPAY | LOC: MRI 3T 09:51 | PROVIDERS: ATTENDING PHYSICIAN Surgery; FAMILY PHYSICIAN Family Medicine | DX: K56.1 Intussusception (principal) | CPT/HCPCS: 72197; 74183; A9575 ==